=== PATIENT | female | born 1990 | race Caucasian/White ===

== ENCOUNTER → 2020-05-30 | Outpatient (CLI) | payer OTHER ==
--- NOTE | 2020-05-31 09:08 | Diagnostic Imaging Report ---
EXAM: US ABDOMEN COMPLETE DATE: 05/30/2020 3:34 PM INDICATION: Abdominal pain COMPARISON: None FINDINGS: The visualized pancreas is unremarkable. The liver is normal in size measuring 12.2 cm in length. Hepatic echogenicity is within normal limits. No focal hepatic abnormalities identified. The main portal vein is patent with antegrade flow and diameter of 0.7 cm, within normal limits. The gallbladder is unremarkable. There is no evidence for cholelithiasis, wall thickening, or pericholecystic fluid. There is no intra or extrahepatic biliary ductal dilatation. The common bile duct measures 3 mm. sonographic Dowling's sign is negative. The spleen is normal in size measuring 11.4 cm in length and demonstrates an unremarkable sonographic appearance. The kidneys are normal in size measuring 12.1 cm in length on the right and 11.4 cm in length on the left. Cortical thickness/echogenicity is within normal limits. There is no evidence for solid renal mass, hydronephrosis, or shadowing calculi. The visualized portions the IVC and aorta are within normal limits. There is no ascites present. IMPRESSION: Unremarkable abdominal ultrasound examination. Signed by: Dr. Darin Huerta MD on 05/31/2020 9:05 AM
--- NOTE | 2020-05-31 09:11 | Diagnostic Imaging Report ---
EXAM: US TRANSVAGINAL DATE: 05/30/2020 3:42 PM INDICATION: Lower abdominal pain COMPARISON: None FINDINGS: Transabdominal and transvaginal images are obtained of the pelvis. The uterus measures 10.0 x 4.3 x 7.3 cm. No focal intrauterine lesion is identified. The endometrial appears unremarkable measuring 6 mm in maximal thickness, within normal limits. The right ovary measures 3.5 x 2.0 x 2.4 cm. The left ovary measures 3.2 x 2.5 x 2.1 cm. Vascularity is preserved. Normal-sized follicles are noted. No abnormal adnexal masses are identified. A small bone of free fluid is visualized within the pelvis. IMPRESSION: Small volume of free fluid identified within the pelvis which is likely physiologic in this premenopausal patient. Otherwise, unremarkable pelvic ultrasound examination. Signed by: Dr. Darin Huerta MD on 05/31/2020 9:08 AM
== END ==
LOC: US 14:50
PROVIDERS: ATTEND Family Medicine
DX: R10.30 Lower abdominal pain, unspecified (principal)
CPT/HCPCS: 76700; 76830; 76856